=== PATIENT | female | born 1995 | race Two or more races ===

== ENCOUNTER 2020-03-07 05:50 | Emergency (ER) | payer BC, OTHER ==
[~2020-03-07] VITALS: Ht 152.4 cm; Wt 61.2 kg
[~2020-03-07 05:50] MED LIST: NKM; ZOFRAN4 M3 ORAL
[2020-03-07 06:04] VITALS: BP 112/69
--- NOTE | 2020-03-07 06:04 | NUR ---
ED Nurse Note: Patient walked in to ED c/o SOB and chest congestion x4 days. Per pt, she has been taking robitusin but no relief. Reports that deep breaths and lying down makes her pain worse. Afebrile. Pt alert and oriented x4 verbally responsive. ERMD at bedside.
--- NOTE | 2020-03-07 06:24 | Emergency Room Report ---
History of Present Illness General Chief Complaint: Upper Respiratory Illness Source: Patient Present Illness HPI Disclaimer: Please note that this report is being documented using [employer] technology. This can lead to erroneous entry secondary to incorrect interpretation by the dictating instrument. HPI: 25-year-old female no reported past medical history presented for cough, shortness of breath and chest pains. She states that symptoms present for the past 3 to 4 days. No fever. Nausea but no vomiting today. Denies diarrhea. Pain with coughing is about 5 out of 10 retrosternal nonradiating. No travel history. No sick contacts. PMH: Patient denies any past medical history PSH: Reviewed Social Hx: No smoking drinking or illicit drug use Allergies: Coded Allergies: No Known Allergies (Unverified , 11/30/13) COVID-19 Screening Contact w/high risk pt: No Recent Travel to affected area: No Experienced COVID-19 symptoms?: Yes COVID-19 symptoms experienced: Shortness of Breath, Cough Patient History Last Menstrual Period: 02/20 Nursing Documentation-PMH Past Medical History: No Stated History Review of Systems All Other Systems: negative except mentioned in HPI Physical Exam Vital Signs Date Time Temp Pulse Resp B/P (MAP) Pulse Ox O2 Delivery O2 Flow Rate FiO2 03/07/20 05:56 98.2 68 20 112/69 (83) 100 Room Air Sp02 EP Interpretation: reviewed, normal General Appearance: well appearing, no apparent distress Head: normocephalic, atraumatic Eyes: bilateral eye PERRL, bilateral eye EOMI ENT: hearing grossly normal, moist mucus membranes Neck: full range of motion, supple Respiratory: lungs clear, normal breath sounds, no rhonchi, no respiratory distress, no retraction, no wheezing Cardiovascular #1: normal peripheral pulses, regular rate, rhythm, no murmur Gastrointestinal: non tender, soft, non-distended, no guarding Neurologic: alert, oriented x3, no focal defects Skin: normal color, warm/dry Medical Decision Making Diagnostic Impression: Primary Impression: URI (upper respiratory infection) ER Course MDM: 25-year-old female presents with cough and shortness of breath. No acute distress on exam. Not hypoxic, afebrile. differential diagnosis: included but not limited to URI, coronavirus infection , pneumonia, less likely ACS or PE. Vital signs were stable. Clinical course Patient placed on stretcher. Patient again on no acute distress on exam. Nontoxic-appearing patient in no apparent distress. Diagnosis -URI Stable and discharged to home with prescriptions. Patient given coronavirus discharge instructions. She does have [place] virus testing arranged for this Thursday. Directed to isolate herself and close contacts. Given return precautions. Chest X-Ray Diagnostic Results Chest X-Ray Diagnostic Results : Chest X-Ray Ordered: Yes # of Views/Limited/Complete: 1 View Indication: Shortness of Breath EP Interpretation: Yes Interpretation: no consolidation, no effusion, no pneumothorax Electronically Signed by: Az Aguilar MD Last Vital Signs Date Time Temp Pulse Resp B/P (MAP) Pulse Ox O2 Delivery O2 Flow Rate FiO2 03/07/20 06:04 98.2 68 20 112/69 100 Room Air Disposition: HOME, SELF-CARE Condition: Stable Scripts Acetaminophen* (ACETAMINOPHEN EXTRA STRENGTH*) 500 Mg Tablet 500 MG ORAL Q6H PRN for For Pain, #30 TAB Prov: Az Aguilar M.D. 03/07/20 Ondansetron* (ZOFRAN*) 4 Mg Tablet 4 MG ORAL Q6H PRN for Nausea & Vomiting, #12 TAB Prov: Az Aguilar M.D. 03/07/20 Referrals: [facility],REFERRING (PCP) Additional Instructions: Patient is instructed to follow-up with her primary care doctor, primary care clinic or county clinic in 1 to 2 days. Patient instructed to return for any worsening symptoms or concerns. Please note that the documentation in this note was used with [employer] dictation technology. Pleae be advised that this may lead to erroneous text due to misinterpretation by the dictation software Az Aguilar M.D. Mar 07, 2020 06:24
--- NOTE | 2020-03-07 06:39 | NUR ---
ED Nurse Note: Xray at bedside.
[2020-03-07] MEDS ORDERED: ZOFRAN4 M3 ORAL (06:49)
[2020-03-07] MEDS ORDERED: ACETAMINOPHEN500 M3 ORAL (06:49)
[2020-03-07 06:53] VITALS: BP 115/71
--- NOTE | 2020-03-07 06:53 | NUR ---
ED Nurse Note: Pt cleared by ERMD for discharge. DC instructions/prescription was given and explained to pt and verbalized understanding of teachings. All medical deviecs such as ID band removed. Pt is AAO x4, ambulatory and left with all personal belongings.
--- NOTE | 2020-03-07 09:29 | Diagnostic Imaging Report ---
Indication: Cough Technique: One view of the chest Comparison: 11/30/2013 Findings: Lungs and pleural spaces are clear. Heart size is normal. No significant change Impression: No acute process
== END 2020-03-07 06:57 | disposition home or self-care (01) ==
LOC: EMR 06:14
DX: J06.9 Acute upper respiratory infection, unspecified (principal); R07.9 Chest pain, unspecified; R06.02 Shortness of breath; R05 Cough
CPT/HCPCS: 71045; 99283